=== PATIENT | female | born 1995 | race Caucasian/White ===

== ENCOUNTER 2021-12-03 20:03 | Emergency (ER) | payer OTHER ==
[~2021-12-03 20:03] MED LIST: DIFLUCAN 100MG100 MG PO; MOTRIN600 MG PO; PERCOCET 5-3251 EACH PO; PHENERGAN25 M1 PO; PROZAC20 MG PO; ULTRAM50 MG PO; VIBRAMYCIN100 MG PO; VOLTAREN **OUT75 MG PO
[2021-12-03 21:58] LABS: BASOPHIL 0.5 % (0-2); BILIRUBIN NEGATIVE (NEGATIVE); BLOOD NEGATIVE Ery/uL (NEGATIVE); CLARITY HAZY (CLEAR); COLOR YELLOW (YELLOW); EOSINOPHIL 1.2 % (0-5); GLUCOSE (U) NORMAL (NORMAL); HCT 40.9 % (37.0-47.0); HGB 13.4 g/dl (12.5-16.0); LEUKOCYTES NEGATIVE Leu/uL (NEGATIVE); LYMPHOCYTE 29.8 % (15-48); MCH 29.1 pg (25.0-31.0); MCHC 32.8 g/dL (32.0-36.0); MCV 88.9 fL (78.0-100.0); MONOCYTE 4.9 % (0-12); NEUTROPHIL 63.2 % (41-80); NITRITE NEGATIVE (NEGATIVE); NRBC 0; PLT 229 K/uL (150-400); PROTEIN NEGATIVE (NEGATIVE); RDW 13.2 % (11.5-14.0); SPECIFIC GRAVITY 1.015 (1.001-1.030); UROBILINOGEN 0.2 mg/dL (0.2-1.0); WBC 11.3 K/uL (4.0-10.5); pH 7.5 (5.0-9.0)
[2021-12-03 22:03] LABS: AMPHETAMINES NEGATIVE (NEGATIVE); BARBITURATES NEGATIVE (NEGATIVE); ECSTASY (MDMA) NEGATIVE (NEGATIVE); MARIJUANA (THC) POSITIVE (NEGATIVE); METHADONE NEGATIVE (NEGATIVE); OPIATES NEGATIVE (NEGATIVE); OXYCODONE NEGATIVE (NEGATIVE)
[2021-12-03 22:20] LABS: ALBUMIN 3.6 g/dL (3.4-5.0); ALKALINE PHOSHATASE 90 U/L (46-116); ALT 41 U/L (14-59); AST 22 U/L (15-37); BILIRUBIN - TOTAL 0.2 mg/dL (0.2-1.0); BUN 10 mg/dL (7-18); BUN/CREAT RATIO (CALC) 13.7 RATIO; CHLORIDE 105 mmol/L (98-107); CO2 (BICARBONATE) 27 mmol/L (21-32); CREATININE 0.73 mg/dL (0.51-0.95); GLOBULIN (CALCULATION) 3.3 g/dL; GLUCOSE 86 mg/dL (74-106); LIPASE 67 U/L (73-393); POTASSIUM 3.9 mmol/L (3.5-5.1); TOTAL PROTEIN 6.9 g/dL (6.4-8.2)
[2021-12-03 22:34] LABS: CORONAVIRUS 2019 SARS-COV-2 NEGATIVE (NEGATIVE); INFLUENZA A NAA NEGATIVE (NEGATIVE)
== END 2021-12-04 00:06 | disposition home or self-care (01) ==
LOC: FER 20:03
PROVIDERS: Internal Medicine
DX: F41.0 Panic disorder [episodic paroxysmal anxiety] (principal); F17.210 Nicotine dependence, cigarettes, uncomplicated; Z20.822 Contact with and (suspected) exposure to COVID-19; Z28.310 Unvaccinated for COVID-19
CPT/HCPCS: 36415; 71250; 80053; 80305; 81003; 83605; 83690; 84145; 85025; 93005; G0480; J2060; U0002